=== PATIENT | male | born 1955 | race Caucasian/White ===

== ENCOUNTER → 2019-03-14 08:36 | Outpatient (CLI) | payer OTHER, SELFPAY ==
[2019-03-14 08:12] VITALS: BMI 24.7
[2019-03-14 08:38] LABS: Bacteria 0 SEEN /hpf (None Seen); Mucous, Urine 0 SEEN /hpf (<or=2+); Red Blood Cells-Urine 0 SEEN /hpf (0-5); Squamous Epithelial Cells - UA 0 SEEN /hpf (0-5); White Blood Cells 0 SEEN /hpf (0-5)
[2019-03-14 12:01] LABS: Absolute Lymphocyte Count 1.66 X10^3/uL (0.83-4.51); Absolute Neutrophil Count 5.5 X10^3/uL (2.0-7.7); Basophil# 0.04 X10^3/uL; Basophil% 0.5 % (0-1); Eosinophil# 0.03 X10^3/uL; Eosinophils% 0.4 % (0-5); Hematocrit 47.3 % (40-54); Hemoglobin 15.5 g/dL (13.0-16.5); Lymphocyte # 1.66 X10^3/ul (4.0); Mean Corp Hgb Conc 32.8 g/dL (32-36); Mean Corpuscular Hgb 31.8 pg (27.0-32.0); Mean Corpuscular Volume 96.9 fL (80-94); Mean Platelet Vol. 9.5 fl (6.2-12.0); Monocyte# 0.66 X10^3/uL; Monocyte% 8.3 % (0-10); NRBC Flagged by Analyzer 0 % (0-5); Neutrophil # 5.51 X10^3/uL (2.7-7.7); Neutrophil % 69.5 % (47-70); Platelet Count 291 K/mm3 (150-450); RBC Distribution Width CV 12.6 % (11.6-14.6); RBC Distribution Width SD 45.5 fl (35.1-43.9); Red Blood Count 4.88 M/mm3 (4.6-6.2); White Blood Count 7.9 K/mm3 (4.4-11.0)
[2019-03-14 12:10] LABS: Color, Urine Yellow (Yellow); Glucose, Dipstick Normal (Normal); Ketone-Dipstick Negative (Negative); Leukocyte Esterase-Dipstick Negative /ul (Negative); Nitrite-Dipstick Negative (Negative); Occult Blood-Urine Negative /ul (Negative); Protein-Dipstick Negative (Negative); Urine Bilirubin Dipstick Negative (Negative); Urine Clarity Clear (Clear); Urine Urobilinogen Normal (Normal)
[2019-03-14 12:20] LABS: AST(SGOT) 23 U/L (15-37); Alanine Aminotransfer ALT/SGPT 30 U/L (16-61); Albumin, Serum 3.6 g/dL (3.2-5.0); Alkaline Phosphatase 62 U/L (45-117); Anion Gap 7 (5-15); BUN 15 mg/dL (7-18); BUN/Creat Ratio 16.9 RATIO (10-20); Chloride 103 mmol/L (98-107); Cholesterol 216 mg/dL (200); Creatinine, Serum 0.89 mg/dL (0.70-1.30); EST Glomerular Filtration Rate 92 mL/min (>60); Est Glom Filt Rate - Afr Amer 111 mL/min (>60); Globulin 3.6 g/dL (2.2-4.2); Glucose 82 mg/dL (74-106); High Density Lipoprotein 65 mg/dL; PSA,Total - Annual Screen 1.14 ng/mL (0.00-4.00); Protein, Total 7.2 g/dL (6.4-8.2); Sodium Level 138 mmol/L (136-145); Triglycerides 50 mg/dL; Very Low Density Lipoprotein 10 mg/dL (5-40); Vitamin D,25 Hydroxy 82.2 ng/mL (29.95-100.01)
== END ==
PROVIDERS: Family Provider Family Medicine; PCP Internal Medicine; Visit Provider Internal Medicine
DX: Z00.00 Encounter for general adult medical examination without abnormal findings (principal)
CPT/HCPCS: 36415; 80053; 80061; 81001; 82306; 84153; 85025; G0103

== ENCOUNTER → 2019-04-27 13:00 | Outpatient (CLI) | payer OTHER, SELFPAY ==
--- NOTE | 2019-04-27 13:00 | LES_PTH ---
PATIENT: ELEUTERIO DELGADO LOC: [facility] U#:[id number] AGE/SX: 69/M ROOM: RE04/27/[address]: Dr. Milan Pittman MD : 1955 BED: DIS: SPEC #: [id number] RECD: 04/27/19 17:07 STATUS: TIMI WILIAM #: [id number] ORIANA: 04/27/19 13:[address]: Milan Pittman DEPT: SURGICAL PATHOLOGY RECD BY: Tarik Pratt ENTERED: 04/28/19 11:37 SP TYPE: Lesion OTHR DR: Dr. Elie Mcclure MD Tissues: Skin of hand and finger, NOS Procedures: Surgery Specimen Level IV HEADER OPERATION: Excision right hand lesion PRE-OP DIAGNOSIS: Hand neoplasm TISSUE SUBMITTED: Right hand tissue, two lesions within longitudinal ellipse with suture in distal portion MICROSCOPIC DIAGNOSIS Right hand lesions, excisional biopsy: Acanthosis, hyperkeratosis and parakeratosis (one lesion). Benign verrucous keratosis with an underlying epidermal inclusion cyst in the dermis, second lesion. Negative for malignancy. Hyperkeratosis and solar elastosis. DELORIS:manny 04/29/19 COMMENT Case has been reviewed in consultation with Dr. Vides who concurs with the above diagnosis. IDC:AM MICROSCOPIC DESCRIPTION Slides are reviewed. GROSS DESCRIPTION Received in fixative is one container labeled with the patient's name and designated right hand. The specimen consists of an ellipse of light ribeiro excised skin measuring 4.6 x 1.5 x 0.2 cm. A suture is present at one tip and is designated the distal portion. The cutaneous surface shows two white-ribeiro, firm nodules, one in the proximal portion measuring 1 cm in diameter and the second lesion also measuring 1 cm in diameter present in the distal portion. The specimen is differentially inked as follows: proximal half - black, distal half - blue. The specimen is serially sectioned and totally submitted as follows: 1 - tips, 2??proximal half, 3 - distal half. / AM:manny 04/28/19 TC:5 CPT: 49239
[2019-04-27 13:06] VITALS: BMI 24.7
== END ==
PROVIDERS: Family Provider Internal Medicine; PCP Internal Medicine; Referring Provider Surgery; Visit Provider Surgery
DX: D48.7 Neoplasm of uncertain behavior of other specified sites (principal)
CPT/HCPCS: 88305

== ENCOUNTER → 2020-11-26 13:55 | Outpatient (CLI) | payer OTHER, SELFPAY ==
[2020-11-26 13:15] VITALS: BMI 24.7
[2020-11-26 15:29] LABS: Absolute Lymphocyte Count 1.62 X10^3/uL (0.83-4.51); Absolute Neutrophil Count 3.8 X10^3/uL (2.0-7.7); Basophil# 0.04 X10^3/uL; Basophil% 0.7 % (0-1); Eosinophil# 0.06 X10^3/uL; Hematocrit 42.6 % (40-54); Lymphocyte # 1.62 X10^3/ul (0.83-4.51); Lymphocyte % 27.1 % (19-41); Mean Corp Hgb Conc 32.9 g/dL (32-36); Mean Corpuscular Hgb 31.6 pg (27.0-32.0); Mean Corpuscular Volume 96.2 fL (80-94); Mean Platelet Vol. 9.3 fl (6.2-12.0); Monocyte# 0.46 X10^3/uL; Monocyte% 7.7 % (0-10); NRBC Flagged by Analyzer 0 % (0-5); Neutrophil # 3.78 X10^3/uL (2.7-7.7); Neutrophil % 63.3 % (47-70); Platelet Count 271 K/mm3 (150-450); RBC Distribution Width CV 12.3 % (11.6-14.6); RBC Distribution Width SD 43.6 fl (35.1-43.9); Red Blood Count 4.43 M/mm3 (4.6-6.2)
[2020-11-26 15:50] LABS: AST(SGOT) 17 U/L (15-37); Alanine Aminotransfer ALT/SGPT 28 U/L (16-61); Albumin, Serum 3.5 g/dL (3.2-5.0); Alkaline Phosphatase 51 U/L (45-117); Anion Gap 5 (5-15); BUN 15 mg/dL (7-18); BUN/Creat Ratio 18.9 RATIO (10-20); Chloride 105 mmol/L (98-107); Cholesterol 187 mg/dL (200); Creatinine, Serum 0.79 mg/dL (0.70-1.30); EST Glomerular Filtration Rate 104 mL/min (>60); Est Glom Filt Rate - Afr Amer 126 mL/min (>60); Globulin 3.5 g/dL (2.2-4.2); Glucose 97 mg/dL (74-106); High Density Lipoprotein 66 mg/dL; PSA,Total - Annual Screen 1.11 ng/mL (0.00-4.00); Potassium 4.3 mmol/L (3.5-5.1); Sodium Level 139 mmol/L (136-145); Triglycerides 40 mg/dL; Very Low Density Lipoprotein 8 mg/dL (5-40)
== END ==
PROVIDERS: PCP Internal Medicine; Referring Provider Internal Medicine; Visit Provider Internal Medicine
DX: Z00.00 Encounter for general adult medical examination without abnormal findings (principal)
CPT/HCPCS: 36415; 80053; 80061; 84153; 85025; G0103

== ENCOUNTER → 2023-09-02 | Outpatient (CLI) | payer OTHER, SELFPAY ==
--- NOTE | 2023-09-02 07:20 | LES_PTH ---
PATIENT: ELEUTERIO DELGADO LOC: [facility] #:[id number] AGE/SX: 67/M ROOM: RE09/02/[address]: Dr. Milan Pittman MD : 1955 BED: DIS: 09/02/2023 SPEC #: [id number] RECD: 09/02/23 10:24 STATUS: TIMI SWAIN #: [id number] ORIANA: 09/02/23 07:[address]: Milan Pittman DEPT: SURGICAL PATHOLOGY RECD BY: Jolie Garzon ENTERED: 09/02/23 12:21 SP TYPE: Lesion OTHR DR: Dr. Hodan Sandoval MD Tissues: Skin of external ear, NOS Procedures: Surgery Specimen Level IV HEADER OPERATION: Excision of right ear lesion PRE-OP DIAGNOSIS: Right ear lesion TISSUE SUBMITTED: Right ear lesion MICROSCOPIC DIAGNOSIS Right ear lesion, excisional biopsy: Actinic keratosis and mild to moderate atypia, hypertrophic type. Solar elastosis. Negative for carcinoma. See comment. DELORIS/ 09/03/2023 COMMENT Multiple detached fragments of benign cartilaginous tissue are also noted. Special stain for fungi is positive for organisms (yeast) in superficial epithelial layers; matched control is appropriate. MICROSCOPIC DESCRIPTION Slides are reviewed. GROSS DESCRIPTION Received in fixative is one container labeled with the patient's name and designated Right ear lesion. The specimen consists of a ribeiro white skin ellipse measuring 2.0 x 0.7cm and up to 0.2cm in thickness. Also present in the container a piece of ribeiro indurated tissue measuring 1.5 x 0.3 x 0.1cm. Also present in the container are multiple pieces of ribeiro indurated tissue measuring in aggregate 0.7 x 0.5 x 0.1cm. Skin piece shows a slightly raised ribeiro-white lesion measuring 0.7 x 0.3cm. This piece is inked and serially sectioned. Largest indurated piece is also inked and serially sectioned. The entire specimen is submitted in two cassettes. Cassette 2 contains the skin ellipse. DELORIS/ 09/02/2023 TC:5 CPT:50717 ,46840
== END | disposition home or self-care (01) ==
LOC: LABSPEC 10:24
PROVIDERS: PCP Internal Medicine; Referring Provider Surgery; Visit Provider Surgery
DX: L98.9 Disorder of the skin and subcutaneous tissue, unspecified (principal)
CPT/HCPCS: 88305

== ENCOUNTER → 2024-02-29 | Outpatient (CLI) | payer OTHER, SELFPAY ==
[2024-02-29 13:21] LABS: Absolute Lymphocyte Count 1.22 X10^3/uL (0.83-4.51); Absolute Neutrophil Count 2.5 X10^3/uL (2.0-7.7); Basophil# 0.06 X10^3/uL; Basophil% 1.5 % (0-1); Hematocrit 41.2 % (40-54); Hemoglobin 14.8 g/dL (13.0-16.5); Lymphocyte # 1.22 X10^3/ul (0.83-4.51); Lymphocyte % 30.7 % (19-41); Mean Corp Hgb Conc 35.9 g/dL (32-36); Mean Corpuscular Hgb 32.2 pg (27.0-32.0); Mean Corpuscular Volume 89.6 fL (80-94); Mean Platelet Vol. 10.5 fl (6.2-12.0); Monocyte# 0.15 X10^3/uL; Monocyte% 3.8 % (0-10); NRBC Flagged by Analyzer 0 % (0-5); Neutrophil # 2.52 X10^3/uL (2.7-7.7); Neutrophil % 63.5 % (47-70); POSITIVE COUNT YES; POSITIVE MORPHOLOGY YES; Platelet Count 63 K/mm3 (150-450); RBC Distribution Width CV 12.3 % (11.6-14.6); RBC Distribution Width SD 40.3 fl (35.1-43.9)
[2024-02-29 13:22] LABS: Differential Indicated SCAN CRITERIA MET
[2024-02-29 13:23] LABS: Erythrocyte Sedimentation Rate 2 mm/hr (0-20)
[2024-02-29 13:45] LABS: Vitamin D,25 Hydroxy 50.3 ng/mL
[2024-02-29 13:50] LABS: Atypical Lymphocyte 2+ %
[2024-02-29 13:53] LABS: ALB/GLOB Ratio 0.8 RATIO (0.9-2.4); AST(SGOT) 136 U/L (15-37); Alanine Aminotransfer ALT/SGPT 100 U/L (16-61); Albumin, Serum 2.8 g/dL (3.2-5.0); Alkaline Phosphatase 84 U/L (45-117); Anion Gap 8 (5-15); BUN 14 mg/dL (7-18); BUN/Creat Ratio 15.9 RATIO (10-20); Calcium,Total 8.3 mg/dL (8.5-10.1); Chloride 89 mmol/L (98-107); Creatinine, Serum 0.88 mg/dL (0.70-1.30); EST Glomerular Filtration Rate 91 mL/min (>60); Est Glom Filt Rate - Afr Amer 110 mL/min (>60); Globulin 3.7 g/dL (2.2-4.2); Glucose 115 mg/dL (74-106); Potassium 3.8 mmol/L (3.5-5.1); Protein, Total 6.5 g/dL (6.4-8.2); Sodium Level 124 mmol/L (136-145)
[2024-03-02 14:10] LABS: Lyme IGG CIA Positive (Negative); Lyme IGM CIA Positive (Negative); Lyme Scn Total Ab w/Rflx Positive (Negative)
== END | disposition home or self-care (01) ==
LOC: LAB 12:38
PROVIDERS: PCP Internal Medicine; Referring Provider Internal Medicine; Visit Provider Internal Medicine
DX: R50.9 Fever, unspecified (principal); R21 Rash and other nonspecific skin eruption; E55.9 Vitamin D deficiency, unspecified
CPT/HCPCS: 36415; 80053; 82306; 84443; 85025; 85652; 86140; 86618

== ENCOUNTER → 2024-03-16 | Outpatient (CLI) | payer OTHER, SELFPAY | END | disposition home or self-care (01) | PROVIDERS: PCP Internal Medicine; Referring Provider Internal Medicine; Visit Provider Internal Medicine | DX: R21 Rash and other nonspecific skin eruption (principal); R50.9 Fever, unspecified; A69.20 Lyme disease, unspecified; A77.0 Spotted fever due to Rickettsia rickettsii ==